=== PATIENT | male | born 1980 | race Caucasian/White ===

== ENCOUNTER 2018-04-28 14:56 | Emergency (ER) | payer OTHER ==
[~2018-04-28] VITALS: Ht 180.3 cm; Wt 102.1 kg
[2018-04-28] MEDS ORDERED: NEURONTIN600 MG PO (15:10)
[2018-04-28] MEDS ORDERED: METFORMIN HCL500 MG PO (15:10)
[2018-04-28 15:32] LABS: ABSOLUTE BASOPHILS 0.1 thou/uL (0.0-0.2); ABSOLUTE EOSINOPHILS 0.3 thou/uL (0.0-0.7); ABSOLUTE LYMPHOCYTES 3.1 thou/uL (0.8-5.3); ABSOLUTE MONOCYTES 0.6 thou/uL (0.0-1.2); ABSOLUTE NEUTROPHILS 4.8 thou/uL (1.6-8.1); BASOPHILS 0.8 %; EOSINOPHILS 3.5 %; HEMATOCRIT 49.4 % (42.0-52.0); HEMOGLOBIN 16.6 gm/dL (14.0-18.0); LYMPHOCYTES 34.5 %; MCHC 33.6 g/dL (28.0-37.0); MCV 86.5 fL (80.0-100.0); MONOCYTES 6.7 %; MPV 9.2 fl. (7.2-11.1); NUCLEATED RBCS 0 /100WBC; PLATELET COUNT* 211 thou/uL (150-400); POLYS 54.5 %; RBC 5.71 mil/uL (4.50-6.00); RDW-CV 14.3 % (10.5-14.5); WBC 8.9 thou/uL (4.0-11.0)
[2018-04-28 15:50] LABS: URINE BILIRUBIN NEGATIVE (Negative); URINE BLOOD NEGATIVE (Negative); URINE CLARITY CLEAR; URINE COLOR YELLOW; URINE GLUCOSE-RANDOM NEGATIVE (Negative); URINE KETONES NEGATIVE (Negative); URINE LEUKOCYTES NEGATIVE (Negative); URINE NITRITE NEGATIVE (Negative); URINE PROTEIN NEGATIVE (Negative); URINE SPECIFIC GRAVITY >= 1.030 (1.005-1.030); URINE UROBILINOGEN 0.2 E.U./dl (0.2-1.0)
[2018-04-28 15:51] LABS: POTASSIUM 3.9 mmol/L (3.5-5.1)
[2018-04-28 15:55] LABS: ALBUMIN 3.9 g/dL (3.4-5.0); TOTAL BILIRUBIN 0.5 mg/dL (<0.1-1.0); TOTAL PROTEIN 7.3 g/dL (6.4-8.2)
[2018-04-28] MEDS ORDERED: BENTYL 20 MG TA20 M1 PO (16:36)
[2018-04-28] MEDS ORDERED: OMEPRAZOLE40 MG PO (16:36)
[2018-04-28 16:41] VITALS: BP 114/75
== END 2018-04-28 16:43 | disposition home or self-care (01) ==
LOC: M.ERS 14:56
PROVIDERS: Physician Assistant
DX: R10.11 Right upper quadrant pain (principal); G62.9 Polyneuropathy, unspecified; F17.200 Nicotine dependence, unspecified, uncomplicated